=== PATIENT | male | born 1970 | race Hispanic/Latino ===

== ENCOUNTER 2020-09-14 15:15 | Emergency (ER) | payer SELFPAY ==
[2020-09-14] MEDS ORDERED: levETIRAcetam 1000 MG/NS 0.75% 1,000 MG/100 ML BAG IV ONE (16:18)
[2020-09-14] MEDS ORDERED: SODIUM CHLORIDE 0.9% 1000 ML 1,000 ML IV ONE (16:18)
--- NOTE | 2020-09-14 16:20 | Emergency Department Report ---
HPI - General Chief Complaint: Seizure Time Seen by Provider: 09/14/20 16:15 - HPI HPI: Room 7 The patient is a 49-year-old male present with a chief complaint of seizures. Patient is currently at [facility] under 1013 for hallucinations when he reportedly had 2 seizures. Patient is reportedly noncompliant with his medication which includes Keppra. Patient is lying with his hands folded in his lap on the stretcher head raised off of stretcher calmly lying down but not responding verbally ED Past Medical Hx - Past Medical History Previous Medical History?: Yes Hx Seizures: Yes - Family History Family history: no significant - Social History Smoking Status: Unknown if ever smoked - Medications Home Medications: Home Medications Medication Instructions Recorded Confirmed Last Taken Type levETIRAcetam [Keppra TAB] 500 mg PO BID #60 tablet 09/14/20 Unknown Rx ED Review of Systems ROS: Stated complaint: SEIZURE Other details as noted in HPI Comment: Unobtainable due to pts medical conditions Physical Exam - Physical Exam Vital Signs: Vital Signs 09/14/20 15:41 Temperature 98.6 F Pulse Rate 96 H Respiratory 14 Rate Blood Pressure 97/55 [Left] O2 Sat by Pulse 94 Oximetry Vital Signs 09/14/20 09/14/20 09/14/20 15:41 15:45 16:00 Temperature 98.6 F Pulse Rate 96 H 95 H 90 Respiratory 14 11 L 13 Rate Blood Pressure 99/58 99/58 Blood Pressure 97/55 [Left] O2 Sat by Pulse 94 91 98 Oximetry 09/14/20 09/14/20 09/14/20 16:15 16:30 16:45 Temperature Pulse Rate 86 85 80 Respiratory 9 L 12 12 Rate Blood Pressure 115/64 115/64 100/62 Blood Pressure [Left] O2 Sat by Pulse 96 99 98 Oximetry 09/14/20 09/14/20 09/14/20 17:00 17:16 17:30 Temperature Pulse Rate 76 79 82 Respiratory 11 L 15 11 L Rate Blood Pressure 100/62 94/64 122/70 Blood Pressure [Left] O2 Sat by Pulse 99 100 100 Oximetry 09/14/20 09/14/20 09/14/20 17:46 17:47 18:10 Temperature Pulse Rate 97 H 75 Respiratory 12 17 11 L Rate Blood Pressure 116/83 94/64 Blood Pressure [Left] O2 Sat by Pulse 100 100 Oximetry 09/14/20 18:15 Temperature Pulse Rate 82 Respiratory 11 L Rate Blood Pressure 114/81 Blood Pressure [Left] O2 Sat by Pulse 100 Oximetry Physical Exam: GENERAL: The patient is well-developed well-nourished male lying on stretcher not appearing to be in acute distress. [] HEENT: Normocephalic. Atraumatic. Extraocular motions are intact. Patient has moist mucous membranes. NECK: Supple. Trachea midline CHEST/LUNGS: Clear to auscultation. There is no respiratory distress noted. HEART/CARDIOVASCULAR: Regular. There is no tachycardia. There is no gallop rub or murmur. ABDOMEN: Abdomen is soft, nontender. Patient has normal bowel sounds. There is no abdominal distention. SKIN: There is no rash. There is no edema. There is no diaphoresis. NEURO: The patient is awake but lies on stretcher with his eyes closed head rais ed above stretcher and hands folded in his lap. The patient is not cooperative with neurologic exam but does not appear to be in any acute distress. MUSCULOSKELETAL: There is no evidence of acute injury. ED Course Vital Signs 09/14/20 15:41 Temperature 98.6 F Pulse Rate 96 H Respiratory 14 Rate Blood Pressure 97/55 [Left] O2 Sat by Pulse 94 Oximetry ED Medical Decision Making - Lab Data Result diagrams: 09/14/20 16:32 09/14/20 16:32 Laboratory Tests 09/14/20 09/14/20 16:32 16:32 WBC 7.9 RBC 4.33 Hgb 13.4 Hct 40.0 MCV 92 MCH 31 MCHC 34 RDW 13.6 Plt Count 150 Lymph % (Auto) 16.6 Williams % (Auto) 11.0 H Eos % (Auto) 1.3 Baso % (Auto) 0.5 Lymph # (Auto) 1.3 Williams # (Auto) 0.9 H Eos # (Auto) 0.1 Baso # (Auto) 0.0 Seg Neutrophils % 70.6 H Seg Neutrophils # 5.6 Sodium 137 Potassium 4.6 Chloride 104.0 Carbon Dioxide 23 Anion Gap 15 BUN 13 Creatinine 0.8 Estimated GFR > 60 BUN/Creatinine Ratio 16 Glucose 87 Calcium 8.6 Magnesium 2.20 - Differential Diagnosis Seizure Critical care attestation.: If time is entered above; I have spent that time in minutes in the direct care of this critically ill patient, excluding procedure time. ED Disposition Clinical Impression: Seizure Disposition: [id number]/TX-[id number] PSY HOSP/PSY UNIT Is pt being admited?: No Does the pt Need Aspirin: No Condition: Stable Additional Instructions: Return to the emergency department should you develop worsening symptoms, inability to tolerate food or liquids, high fever or any other concerns Prescriptions: levETIRAcetam [Keppra TAB] 500 mg PO BID #60 tablet Referrals: PRIMARY MD LINO [Primary Care Provider] - 3-5 Days TONY NIEVES MD [Staff Physician] - 3-5 Days (Dr. Nieves is a neurologist. Please follow-up with him for further evaluation) Time of Disposition: 18:34
[2020-09-14 16:53] LABS: Basophils % (Auto) 0.5 % (0.0-1.8); Eosinophils # (Auto) 0.1 K/mm3 (0.0-0.4); Eosinophils % (Auto) 1.3 % (0.0-4.3); Hemoglobin 13.4 gm/dl (11.8-15.2); Lymphocytes # (Auto) 1.3 K/mm3 (1.2-5.4); Lymphocytes % (Auto) 16.6 % (13.4-35.0); Mean Corpuscular HGB Conc 34 % (32-34); Mean Corpuscular Volume 92 fl (84-94); Monocytes # (Auto) 0.9 K/mm3 (0.0-0.8); Platelet Count 150 K/mm3 (140-440); Red Blood Count 4.33 M/mm3 (3.65-5.03); Red Cell Distribution Width 13.6 % (13.2-15.2)
[2020-09-14 17:05] LABS: BUN/Creatinine Ratio 16; Blood Urea Nitrogen 13 mg/dL (9-20); Calcium 8.6 mg/dL (8.4-10.2); Hemolysis Index 13
[2020-09-14 18:21] VITALS: BP 114/81
== END 2020-09-14 22:26 ==
LOC: ED 15:15
DX: G40.909 Epilepsy, unspecified, not intractable, without status epilepticus (principal); Z79.899 Other long term (current) drug therapy
CPT/HCPCS: 36415; 80048; 83735; 85025; 96361; 96374; 99283; J1953; J7030